=== PATIENT | female | born 1970 | race Caucasian/White ===

== ENCOUNTER → 2020-12-28 11:23 | Outpatient (CLI) | payer OTHER, SELFPAY ==
--- NOTE | 2020-12-28 | DI.RAD.S_ITS ---
PROCEDURE: XR HIP W PEL IF DONE LT 2V INDICATIONS: Pain in unspecified hip TECHNIQUE: AP pelvis with lateral view(s) of the left hip(s). COMPARISON: , US, US PELVIC + TRANSVAG + DOPPLER, 09/25/2020, 22:46. [facility], CR, XR LUMBAR SPINE 2-3V, 12/28/2020, 11:38. FINDINGS: Bones: No fractures or dislocations. Pelvic ring appears intact. No suspicious bony lesions. Mild symmetric hip and sacroiliac joint degeneration bilaterally. Soft tissues: The visualized bowel gas pattern is normal. No suspicious soft tissue calcifications. IMPRESSION: Mild symmetric degenerative joint disease in hips and sacroiliac joints bilaterally. Dictated by: Murtaza Alvarado M.D. on 12/28/2020 at 13:01 Approved by: Murtaza Alvarado M.D. on 12/28/2020 at 13:02
--- NOTE | 2020-12-28 | DI.RAD.S_ITS ---
PROCEDURE: XR LUMBAR SPINE 2-3V INDICATIONS: Pain in unspecified hip TECHNIQUE: 2 views of the lumbar spine were acquired. COMPARISON: None. FINDINGS: Bones: 5 [id number] vertebrae are present. There is grade 1 anterolisthesis of L4 on L5. No vertebral body compression fractures. No suspicious bony lesions. Mild degenerative spurring scattered in lumbar spine, likely related to early disc degeneration. Severe facet arthropathy at L4-L5 and L5-S1. Soft tissues: Overlying bowel gas pattern is normal. No suspicious soft tissue calcifications. IMPRESSION: 1. Severe facet arthropathy in the lower lumbar spine. 2. Mild degenerative disc disease in lumbar spine. 3. Grade 1 anterolisthesis of L4 on L5. Dictated by: Murtaza Alvarado M.D. on 12/28/2020 at 12:58 Approved by: Murtaza Alvarado M.D. on 12/28/2020 at 13:00
== END ==
DX: M25.559 Pain in unspecified hip (principal); M54.5 Low back pain; M47.816 Spondylosis without myelopathy or radiculopathy, lumbar region; M47.817 Spondylosis without myelopathy or radiculopathy, lumbosacral region; M51.36 Other intervertebral disc degeneration, lumbar region; M43.16 Spondylolisthesis, lumbar region; M16.0 Bilateral primary osteoarthritis of hip; M46.1 Sacroiliitis, not elsewhere classified
CPT/HCPCS: 72100; 73502

== ENCOUNTER → 2021-01-31 12:05 | Outpatient (CLI) | payer OTHER, SELFPAY ==
--- NOTE | 2021-01-31 12:14 | DI.RAD.S_ITS ---
PROCEDURE: XR HIP W PEL IF DONE LT 2V INDICATIONS: HIP PAIN TECHNIQUE: AP pelvis with lateral view(s) of the left hip(s). COMPARISON: [facility], CR, XR HIP W PEL IF DONE LT 2V, 12/28/2020, 11:38. FINDINGS: Bones: No fractures or dislocations. Pelvic ring appears intact. No suspicious bony lesions. Soft tissues: The visualized bowel gas pattern is normal. No suspicious soft tissue calcifications. IMPRESSION: There is a [id number]-ju-[id number] degree of left hip joint osteoarthritis, essentially symmetric without on the right. No trauma. Dictated by: Bartolo Rogers M.D. on 01/31/2021 at 12:59 Approved by: Bartolo Rogers M.D. on 01/31/2021 at 13:06
--- NOTE | 2021-01-31 12:16 | DI.RAD.S_ITS ---
PROCEDURE: XR KNEE RT 1TO2V INDICATIONS: KNEE PAIN TECHNIQUE: 3 views of the knee were acquired. COMPARISON: None. FINDINGS: Bones: No fractures or dislocations. No suspicious bony lesions. Soft tissues: No joint effusion. No suspicious soft tissue calcifications. IMPRESSION: There is a minimal degree of knee joint space narrowing both medially and laterally indicating likelihood of slight degenerative osteoarthritis. No effusion or loose body seen. Dictated by: Bartolo Rogers M.D. on 01/31/2021 at 12:58 Approved by: Bartolo Rogers M.D. on 01/31/2021 at 12:59
== END ==
DX: M25.559 Pain in unspecified hip (principal); M16.12 Unilateral primary osteoarthritis, left hip; M25.561 Pain in right knee
CPT/HCPCS: 73502; 73560

== ENCOUNTER → 2021-02-15 10:05 | Outpatient (CLI) | payer OTHER, SELFPAY ==
--- NOTE | 2021-02-15 10:12 | DI.RAD.S_ITS ---
PROCEDURE: XR KNEE LT 3V INDICATIONS: LT KNEE PAIN TECHNIQUE: 3 views of the knee were acquired. COMPARISON: [facility], CR, XR KNEE RT 1TO2V, 01/31/2021, 12:20. FINDINGS: Bones: No fractures or dislocations. No suspicious bony lesions. Soft tissues: No joint effusion. No suspicious soft tissue calcifications. IMPRESSION: No trauma found. Source of pain is not seen. Dictated by: Bartolo Rogers M.D. on 02/15/2021 at 11:13 Approved by: Bartolo Rogers M.D. on 02/15/2021 at 11:13
== END ==
PROVIDERS: PCP Family Medicine Sports Medicine
DX: M25.562 Pain in left knee (principal)
CPT/HCPCS: 73562

== ENCOUNTER 2022-06-24 18:30 | Emergency (ER) | payer OTHER, MEDICAID, SELFPAY ==
[2022-06-24 19:14] VITALS: BP 127/86; PULSE 102; RESP 18; TEMP 36.6; O2SAT 96
[2022-06-24 20:57] LABS: Add Manual Diff / Slide Review NO; Basophils Absolute Auto 100 /uL (0-100); Eosinophils Absolute Auto 200 /uL (0-450); Hematocrit 40.6 % (36-46); Hemoglobin 13.9 g/dL (12.0-16.0); Lymphocytes Absolute Auto 1800 /uL (1100-4500); Lymphocytes Percent Auto 27.4 % (25-40); Mean Corpuscular HGB Conc 34.2 % (30-36); Mean Corpuscular Hemoglobin 29.5 PG (26-34); Mean Corpuscular Volume 86.4 fL (80-100); Monocytes Absolute Auto 500 /uL (0-900); Monocytes Percent Auto 8.5 % (3-14); Neutrophils Absolute Auto 3900 /uL (1500-7000); Neutrophils Percent Auto 60.1 % (50-75); Platelet Count 323 X10^3/uL (150-400); Red Cell Distribution Width 13.7 % (11.6-14.8); White Blood Cell Count 6.4 X10^3/uL (4.5-11.0)
[2022-06-24 21:10] LABS: Alanine Aminotransferase 70 IU/L (<35); Albumin 4.3 g/dL (3.5-5.0); Albumin Globulin Ratio 1.3 (1.0-2.8); Alkaline Phosphatase 87 U/L (38-126); Aspartate Aminotransferase 41 IU/L (14-36); Bilirubin Total 0.3 mg/dL (0.2-1.3); Blood Urea Nitrogen 16 mg/dL (7-17); Calcium 9.6 mg/dL (8.4-10.2); Carbon Dioxide 30 mmol/L (22-32); Chloride 102 mmol/L (98-107); Estimated Glomerular Filt Rate > 60 mL/min (>60); Globulin 3.2 g/dL (1.7-4.1); Glucose 100 mg/dL (70-100); HEMOLYSIS 15 (0-50); Lipase 56 U/L (23-300); Potassium 4.3 mmol/L (3.4-5.1); Sodium 140 mmol/L (137-145); Total Protein 7.5 g/dL (6.3-8.2)
[2022-06-24 21:32] LABS: Lactate (Lactic Acid) 1.4 mmol/L (0.7-2.1)
--- NOTE | 2022-06-24 21:53 | ED.GENADULT ---
HPI - General Adult General Chief complaint: Abdominal Pain Stated complaint: L abd pain Time Seen by Provider: 06/24/22 21:39 Source: patient Mode of arrival: Ambulatory History of Present Illness HPI narrative: 52-year-old female who is here for evaluation of left-sided abdominal pain. States she had similar symptoms within the past week. She went to an outside walk-in clinic. Had labs performed. A CT scan performed. Was told that she had a small left-sided kidney stone. Was sent home with a strainer. States that her symptoms improved but has now returned. No vaginal bleeding. No change in bowel habits. No blood in her urine. Was also told that she had diverticulosis. She has had multiple colonoscopies with precancerous polyps. She is at the time where she should be scheduling a repeat colonoscopy. Related Data Home Medications Medication Instructions Recorded Confirmed aripiprazole 10 mg tablet 10 mg PO DAILY 06/24/22 06/24/22 dextroamphetamine-amphetamine ER 15 mg PO 06/24/22 06/24/22 15 mg 24hr capsule,extend release levothyroxine 75 mcg tablet 75 mcg PO DAILY 06/24/22 06/24/22 quetiapine 25 mg tablet 25 mg PO DAILY 06/24/22 06/24/22 venlafaxine 150 mg 150 mg PO 06/24/22 capsule,extended release 24 hr Allergies Allergy/AdvReac Type Severity Reaction Status Date / Time morphine AdvReac Abdominal Verified 06/24/22 19:18 Pain Review of Systems Review of Systems ROS Unobtainable: All systems reviewed & are unremarkable except as noted in HPI and below Patient History Medical History Diverticulosis tobacco type: vaping alcohol intake frequency: other Substance Use Type: does not use Exam Initial Vital Signs Initial Vital Signs: Vital Signs Temperature 97.8 F 06/24/22 19:14 Pulse Rate 102 H 06/24/22 19:14 Respiratory Rate 18 06/24/22 19:14 Blood Pressure 127/86 06/24/22 19:14 Pulse Oximetry 96 06/24/22 19:14 Oxygen Delivery Method 06/24/22 19:14 Const General: cooperative and comfortable HENMT Head: normal to inspection and atraumatic Resp Effort & Inspection: normal respiratory effort Auscultation: clear to auscultation bilaterally Cardio Rate: regular rate Rhythm: regular rhythm GI Inspection: normal to inspection Palpation: soft, No guarding, No rigid and tender (Left-sided abdomen) Back/Spine/Pelvis Back: No CVA tenderness Skin General: no rashes or lesions noted Neuro General: patient alert, patient awake and moves all extremities Extrem General: normal to inspection and capillary refill normal Course Orders Ordered: ED Orders 06/24/22 20:45 Complete Blood Count AUTO DIFF Stat Comprehensive Metabolic Panel Stat Lipase Stat 06/24/22 21:15 Lactate (Lactic Acid) Stat 06/24/22 21:54 CT kidney ureter bladder (KUB) Stat Discontinued Medications Ketorolac Tromethamine (Ketorolac 30 Mg/Ml Vial) 30 mg IV NOW ONE Stop: 06/24/22 21:54 Last Admin: 06/24/22 22:11 Dose: 30 mg Documented By: CHRIS Lorazepam (Lorazepam 0.5 Mg Tablet) 1 mg PO NOW ONE Stop: 06/24/22 22:16 Last Admin: 06/24/22 22:17 Dose: 1 mg Documented By: CHRIS Ondansetron HCl (Ondansetron 4 Mg/2 Ml Inj) 4 mg IV NOW ONE Stop: 06/24/22 21:54 Last Admin: 06/24/22 22:11 Dose: 4 mg Documented By: CHRIS Oxycodone/Acetaminophen (Oxycodone/Apap 5/325 Prepack) 1 bottle MISC SEEINSTR ONE Stop: 06/25/22 00:14 Last Admin: 06/25/22 00:34 Dose: 1 bottle Documented By: CHRIS Vital Signs Vital signs: Vital Signs - 8 hr 06/25/22 00:34 Pulse Rate 78 Respiratory Rate 18 Blood Pressure 130/68 Pulse Oximetry 98 Oxygen Delivery Method Room Air Medical Decision Making Lab Data Lab results reviewed: Yes I reviewed the patient's lab results. Result diagrams: 06/24/22 20:45 06/24/22 20:45 Labs: Lab Results 06/24/22 06/24/22 06/24/22 Range/Units 20:45 20:45 21:15 WBC 6.4 (4.5-11.0) X10^3/uL RBC 4.70 (4.0-5.2) X10^6/uL Hgb 13.9 (12.0-16.0) g/dL Hct 40.6 (36-46) % MCV 86.4 (80-100) fL MCH 29.5 (26-34) PG MCHC 34.2 (30-36) % RDW 13.7 (11.6-14.8) % Plt Count 323 (150-400) X10^3/uL Neut % (Auto) 60.1 (50-75) % Lymph % (Auto) 27.4 (25-40) % [place] % (Auto) 8.5 (3-14) % Eos % (Auto) 3.0 (2-4) % Baso % (Auto) 1.0 (0-2) % Neut # (Auto) 3900 (5947-7237) /uL Lymph # (Auto) 1800 (1650-0592) /uL [place] # (Auto) 500 (0-900) /uL Eos # (Auto) 200 (0-450) /uL Baso # (Auto) 100 (0-100) /uL Sodium 140 (137-145) mmol/L Potassium 4.3 (3.4-5.1) mmol/L Chloride 102 (98-107) mmol/L Carbon Dioxide 30 (22-32) mmol/L BUN 16 (7-17) mg/dL Creatinine 0.64 (0.52-1.04) mg/dL Estimated GFR > 60 (>60) mL/min BUN/Creatinine Ratio 25.0 H (6-22) Glucose 100 (70-100) mg/dL Lactate 1.4 (0.7-2.1) mmol/L Calcium 9.6 (8.4-10.2) mg/dL Total Bilirubin 0.3 (0.2-1.3) mg/dL AST 41 H (14-36) IU/L ALT 70 H (<35) IU/L Alkaline Phosphatase 87 (38-126) U/L Total Protein 7.5 (6.3-8.2) g/dL Albumin 4.3 (3.5-5.0) g/dL Globulin 3.2 (1.7-4.1) g/dL Albumin/Globulin Ratio 1.3 (1.0-2.8) Lipase 56 (23-300) U/L Point of Care Testing Test Results Negative Urine Dip Bedside Urine Glucose Negative Bedside Urine Bilirubin - Negative Bedside Urine Ketone - Negative Urine Specific [place] 1.025 Bedside Urine Occult Blood - Negative Bedside Urine pH 6.0 Bedside Urine Protein - Negative Bedside Urine Urobilinogen - Negative Bedside Urine Nitrite - Negative Bedside Urine Leukocytes - Negative Esterase Point of care testing: Point of Care Testing Test Results Negative Urine Dip Bedside Urine Glucose Negative Bedside Urine Bilirubin - Negative Bedside Urine Ketone - Negative Urine Specific [place] 1.025 Bedside Urine Occult Blood - Negative Bedside Urine pH 6.0 Bedside Urine Protein - Negative Bedside Urine Urobilinogen - Negative Bedside Urine Nitrite - Negative Bedside Urine Leukocytes - Negative Esterase Imaging Data CT scan - abdomen/pelvis: Radiologist's Impression: [address] [address] [address] Scan Report Signed Patient: Ángela Roman MR#: [id number] : 1970 Acct:[id number] Age/Sex: 52 / F Date of Service: 06/24/22 Loc: ED Accession Number: [id number] ?? Procedure: CT kidney ureter bladder (KUB) Ordering Provider: Juan Cruz D.O. PROCEDURE:? CT KIDNEY URETER BLADDER (KUB) ? INDICATIONS:? Evaluate for kidney stones. ? TECHNIQUE:? Axial sections were acquired from the lung bases to the pubic symphysis.? Coronal and sagittal reformats were performed.? For radiation dose reduction, the following was used: ?automated exposure control, adjustment of mA and/or kV according to patient size.? ? COMPARISON:? [facility], CT, CT ABDOMEN PELVIS WITH CONTRAST, 05/21/2022, 11:24. ? FINDINGS:? Image quality:? Fair.? Motion artifact particularly in the pelvis. ? Lung bases:? Unremarkable.? ? Heart:? No significant findings.? Small hiatal hernia. ? URINARY: Right Kidney: ? No stones or hydronephrosis.? Right Ureter:? No hydroureter.? ? Left Kidney:? No hydronephrosis.? Nonobstructing calculus measuring 0.3 cm. Left Ureter:? No hydroureter.? ? Bladder:? No conspicuous stones. ? ? ? ABDOMEN: Liver:? Hepatic steatosis.? ? Gallbladder:? Absent.? ? Biliary ducts:? Unremarkable.? ? Pancreas:? Unremarkable.? ? Spleen:? Unremarkable.? ? Adrenal Glands:? Unremarkable.? ? ? Stomach and Bowel:? Stomach, small bowel loops, and colon are unremarkable.? Diverticulosis. Peritoneum:? No abnormal intraperitoneal fluid.? No free air.? ? Ventral Wall: ? Tiny umbilical hernia. Abdominal Nodes:? No enlarged retroperitoneal or mesenteric lymph nodes.? Vessels:? Aorta and inferior vena cava are normal in size.? ? PELVIS: Pelvic Organs:? Anteverted uterus.? ? Pelvic Nodes: Unremarkable. Miscellaneous: No inguinal hernias are seen. ? ? ? Bones:? No suspicious lesion.? Pelvic bones are not well evaluated due to artifact. ? IMPRESSION:? 1. No hydronephrosis. ? 2. Nonobstructing left kidney stone measuring 0.3 cm. ? 3. Hepatic steatosis.? Small hiatal hernia.? Diverticulosis.? ? Dictated by: Cornelius Trejo M.D. on 06/24/2022 at 23:00 ? ? Approved by: Cornelius Trejo M.D. on 06/24/2022 at 23:05?? MDM Narrative Medical decision making narrative: Labs unremarkable, urine is unremarkable, exam is relatively unremarkable. The CT scan does show a left-sided renal stone that is 3 mm. There are no ureteral stones. Unsure as to whether not this left-sided renal stone is what is causing her discomfort but does not appear that she is passing any stones. No signs of urinary tract infection. No signs of pyelonephritis. There are no skin changes concerning for zoster. She does have diverticulosis without any signs of diverticulitis. No bowel obstruction. Had a discussion with her regarding her symptoms. We will provide more symptom treatment. Will have her contact her GI doctor she may need a colonoscopy for further evaluation of her presenting symptoms today. She was given return precautions. She expressed understanding and agreement. Discharge Plan Departure Patient Disposition: Home Clinical Impression: Abdominal pain, Diverticulosis Instructions: DI for Abdominal Pain-Adult Activity Restrictions/Additional Instructions: Continue to take all of your medications as directed. Recommend you contact your primary doctor and also your GI doctor for a follow-up as you may need a colonoscopy to continue to evaluate your symptoms. Return to the emergency department for any new or worsening symptoms Prescriptions: No Action quetiapine 25 mg tablet 25 mg PO DAILY Label Comments: TAKE TWO TABLETS BY MOUTH DAILY AT BEDTIME NEEDED venlafaxine 150 mg capsule,extended release 24hr 150 mg PO Label Comments: TAKE ONE CAPSULE BY MOUTH EACH MORNING DIRECTED levothyroxine 75 mcg tablet 75 mcg PO DAILY dextroamphetamine-amphetamine 15 mg capsule,extended release 24hr 15 mg PO Label Comments: Take one capsule by mouth each mornng as directed -- ADD aripiprazole 10 mg tablet 10 mg PO DAILY Label Comments: Take one tablet by mouth nightly at bedtime as directed Referrals: Mark Mccall MD [Primary Care Provider] - Visit Report Forms: Patient Portal/API
--- NOTE | 2022-06-24 21:54 | DI.CT.S_ITS ---
PROCEDURE: CT KIDNEY URETER BLADDER (KUB) INDICATIONS: Evaluate for kidney stones. TECHNIQUE: Axial sections were acquired from the lung bases to the pubic symphysis. Coronal and sagittal reformats were performed. For radiation dose reduction, the following was used: automated exposure control, adjustment of mA and/or kV according to patient size. COMPARISON: [facility], CT, CT ABDOMEN PELVIS WITH CONTRAST, 05/21/2022, 11:24. FINDINGS: Image quality: Fair. Motion artifact particularly in the pelvis. Lung bases: Unremarkable. Heart: No significant findings. Small hiatal hernia. URINARY: Right Kidney: No stones or hydronephrosis. Right Ureter: No hydroureter. Left Kidney: No hydronephrosis. Nonobstructing calculus measuring 0.3 cm. Left Ureter: No hydroureter. Bladder: No conspicuous stones. ABDOMEN: Liver: Hepatic steatosis. Gallbladder: Absent. Biliary ducts: Unremarkable. Pancreas: Unremarkable. Spleen: Unremarkable. Adrenal Glands: Unremarkable. Stomach and Bowel: Stomach, small bowel loops, and colon are unremarkable. Diverticulosis. Peritoneum: No abnormal intraperitoneal fluid. No free air. Ventral Wall: Tiny umbilical hernia. Abdominal Nodes: No enlarged retroperitoneal or mesenteric lymph nodes. Vessels: Aorta and inferior vena cava are normal in size. PELVIS: Pelvic Organs: Anteverted uterus. Pelvic Nodes: Unremarkable. Miscellaneous: No inguinal hernias are seen. Bones: No suspicious lesion. Pelvic bones are not well evaluated due to artifact. IMPRESSION: 1. No hydronephrosis. 2. Nonobstructing left kidney stone measuring 0.3 cm. 3. Hepatic steatosis. Small hiatal hernia. Diverticulosis. Dictated by: Cornelius Trejo M.D. on 06/24/2022 at 23:00 Approved by: Cornelius Trejo M.D. on 06/24/2022 at 23:05
[2022-06-24] MEDS: KETOROLAC 30 MG/ML VIAL IV (22:11)
[2022-06-24] MEDS: ONDANSETRON 4 MG/2 ML INJ IV (22:11)
[2022-06-24] MEDS: LORazepam 0.5 MG TABLET 1 MG PO (22:17)
[2022-06-25 00:34] VITALS: BP 130/68; PULSE 78; RESP 18; O2SAT 98
[2022-06-25] MEDS: OXYCODONE/APAP 5/325 PREPACK 1 BOTTLE MISC (00:34)
== END 2022-06-25 00:35 | disposition home or self-care (01) ==
PROVIDERS: Emergency Provider Emergency Medicine; PCP Family Medicine Sports Medicine
DX: K57.90 Diverticulosis of intestine, part unspecified, without perforation or abscess without bleeding (principal); N20.0 Calculus of kidney
CPT/HCPCS: 36415; 74176; 80053; 81003; 81025; 83605; 83690; 85025; 96374; 96375; 99284; J1885; J2405